=== PATIENT | male | born 1995 | race Caucasian/White ===

== ENCOUNTER 2022-02-11 15:59 | Emergency (ER) | payer SELFPAY ==
[2022-02-11] MEDS ORDERED: Ondansetron PF 4 MG/2 ML Vial ONE (16:27)
[2022-02-11] MEDS ORDERED: Clindamycin/D5W 600 mg/50 ml Premix Bag ONE (16:27)
[2022-02-11] MEDS ORDERED: Morphine 4 MG/ML VIAL ONE (16:27)
== END 2022-02-11 18:40 | disposition home or self-care (01) ==
LOC: ERS 15:59
DX: L03.211 Cellulitis of face (principal); K02.9 Dental caries, unspecified; K03.81 Cracked tooth; Z87.891 Personal history of nicotine dependence
CPT/HCPCS: 96365; 96375; J2270; J2405; J3490